=== PATIENT | male | born 1970 ===

== ENCOUNTER → 2016-08-15 | Outpatient (CLI) | payer OTHER ==
[2016-08-15 12:52] LABS: URINE APPEARANCE CLEAR (CLEAR); URINE BILIRUBIN NEG (NEG); URINE COLOR YELLOW; URINE NITRITE NEG (NEG); URINE SPECIFIC GRAVITY 1.024 (1.000-1.030); UROBILINOGEN NEG (NEG)
[2016-08-15 12:54] LABS: MANUAL MICROSCOPIC REQUIRED? NO; REVIEW REQ? NO
[2016-08-15 13:02] LABS: ALB/GLOB RATIO 0.9 (0.9-2); ALKALINE PHOSPHATASE 103 U/L (45-117); ALT/SGPT 26 U/L (12-78); AST/SGOT 16 U/L (15-37); BASO % 0.1 %; BASO ABS # 0.02 K/uL (0-0.2); BLOOD UREA NITROGEN 32 mg/dl (7-18); BUN/CREATININE RATIO 28.8 (10-20); CALCIUM 9.8 mg/dl (8.5-10.1); CARBON DIOXIDE 30 mmol/L (21-32); CHLORIDE 104 mmol/L (98-107); EOS % 0.5 %; GLUCOSE 90 mg/dl (70-99); HEMATOCRIT 45.1 % (42-52); IG% 0.3 %; LYMPH % 13.1 %; MEAN CELL VOLUME 86.9 fL (80-100); MEAN CORPUSCULAR HEMOGLOBIN 28.5 pg (25-34); MEAN PLATELET VOLUME 11.6 fL (7.4-10.4); MONO % 9.1 %; NEUT % 76.9 %; PLATELET COUNT 216 K/uL (130-400); POTASSIUM 3.9 mmol/L (3.5-5.1); RED BLOOD COUNT 5.19 M/uL (4.7-6.1); SODIUM 141 mmol/L (136-145); WHITE BLOOD COUNT 14.52 K/uL (4.8-10.8)
[2016-08-15 13:14] LABS: COMPLETE YES; MEAN CORPUSCULAR HGB CONC 32.8 g/dl (32-36)
== END | disposition home or self-care (01) ==
LOC: C.LABSPEC 12:05
PROVIDERS: ATTEND Nurse Practitioner Adult Health
DX: E86.0 Dehydration (principal)